=== PATIENT | female | born 1970 | race Caucasian/White ===

== ENCOUNTER → 2017-05-07 08:36 | Outpatient (CLI) | payer BC, SELFPAY ==
[2017-05-07 10:17] LABS: Basophils % 0.5 % (0.1-2.0); Eosinophils # 0.2 K/mm3 (0.0-0.4); Eosinophils % 3.1 % (0.1-12.0); Hematocrit 43.7 % (37.0-47.0); Hemoglobin 14.1 g/dL (12.2-16.2); Lymphocytes # 0.9 K/mm3 (0.7-4.5); Lymphocytes % 15.1 K/mm3 (10-50); Mean Corpuscular HGB Conc 32.2 g/dL (31.8-35.4); Mean Corpuscular Hemoglobin 25.5 pg (27.0-31.2); Mean Corpuscular Volume 79.3 fl (81-99); Mean Platelet Volume 6.9 fl (7.4-10.4); Monocytes # 0.5 K/mm3 (0.1-1.0); Monocytes % 8.2 % (1.7-9.3); Neutrophils # 4.2 K/mm3 (1.8-7.8); Neutrophils % 73.1 % (37.0-80.0); Platelet Count 220 K/mm3 (142-424); Red Blood Count 5.51 M/mm3 (4.20-5.40); Red Cell Distribution Width 16.5 % (11.5-17.5); White Blood Count 5.8 K/mm3 (4.8-10.8)
[2017-05-07 11:27] LABS: Alanine Aminotransferase 27 U/L (12-78); Albumin Level 3.6 gm/dL (3.4-5.0); Albumin/Globulin Ratio 1.2 (1.1-1.8); Alkaline Phosphatase 95 U/L (46-116); Anion Gap 11.4 mEq/L (5-15); Aspartate Amino Transferase 19 U/L (15-37); Bilirubin,Total 0.5 mg/dL (0.2-1.0); Blood Urea Nitrogen 10 mg/dL (7-18); Calcium 8.6 mg/dL (8.5-10.1); Carbon Dioxide 27 mmol/L (21.0-32.0); Chloride 106 mmol/L (98-107); Chol/HDL Ratio 2.1 (1-3.5); Cholesterol 143 mg/dL (140-200); Creatinine,Serum 0.58 mg/dL (0.55-1.02); Estimated Glomerular Filt Rate 111 ml/min (>60); Ferritin 11 ng/mL (8-388); GFR (African American) 135 ML/MIN (>60); Globulin 3.1 gm/dl (1.3-3.2); Glucose 99 mg/dL (74-106); HDL Cholesterol 68 mg/dL (29-89); LDL Cholesterol 65 mg/dL (0-130); Potassium 4.4 mmoL/L (3.5-5.1); Sodium 140 mmol/L (136-145); Thyroid Stimulating Hormone 0.98 uIU/ml (0.358-3.740); Total Protein,Serum 6.7 gm/dL (6.4-8.2); Triglycerides 50 mg/dL (30-200); VLDL Cholesterol 10 mg/dL (0-40)
[2017-05-08 09:10] LABS: Iron 39 ug/dL (27-159); UIBC 358 ug/dL (131-425)
[2017-05-08 17:27] LABS: Iron Saturation 10 % (15-55)
[2017-05-09 16:20] LABS: Folate >20.0 ng/mL (>3.0)
[2017-05-10 06:23] LABS: Vitamin B12 >2000 pg/mL (232-1245); Vitamin D 25 Hydroxy 40.8 ng/mL (30.0-100.0)
== END ==
PROVIDERS: PCP Physician Assistant; Visit Provider Physician Assistant
DX: D50.8 Other iron deficiency anemias (principal); R53.83 Other fatigue; Z13.220 Encounter for screening for lipoid disorders
CPT/HCPCS: 36415; 80053; 80061; 82607; 82652; 82728; 82746; 83550; 84443; 85025

== ENCOUNTER → 2017-05-24 08:42 | Outpatient (CLI) | payer BC, SELFPAY ==
[2017-05-24 09:28] LABS: Basophils % 0.4 % (0.1-2.0); Eosinophils # 0.2 K/mm3 (0.0-0.4); Eosinophils % 2.1 % (0.1-12.0); Hematocrit 38.9 % (37.0-47.0); Lymphocytes # 1.3 K/mm3 (0.7-4.5); Lymphocytes % 16.9 K/mm3 (10-50); Mean Corpuscular HGB Conc 33.5 g/dL (31.8-35.4); Mean Corpuscular Hemoglobin 26.3 pg (27.0-31.2); Mean Corpuscular Volume 78.4 fl (81-99); Mean Platelet Volume 7.2 fl (7.4-10.4); Monocytes # 0.4 K/mm3 (0.1-1.0); Monocytes % 5.6 % (1.7-9.3); Neutrophils # 5.6 K/mm3 (1.8-7.8); Neutrophils % 74.9 % (37.0-80.0); Platelet Count 191 K/mm3 (142-424); Red Blood Count 4.96 M/mm3 (4.20-5.40); Red Cell Distribution Width 16.1 % (11.5-17.5); White Blood Count 7.5 K/mm3 (4.8-10.8)
[2017-05-24 10:12] LABS: Anion Gap 11.4 mEq/L (5-15); Blood Urea Nitrogen 17 mg/dL (7-18); Carbon Dioxide 26 mmol/L (21.0-32.0); Chloride 107 mmol/L (98-107); Creatinine,Serum 0.67 mg/dL (0.55-1.02); Estimated Glomerular Filt Rate 94 ml/min (>60); GFR (African American) 114 ML/MIN (>60); Glucose 91 mg/dL (74-106); Potassium 4.4 mmoL/L (3.5-5.1); Sodium 140 mmol/L (136-145)
== END ==
PROVIDERS: PCP Physician Assistant; Visit Provider Nurse Practitioner Obstetrics & Gynecology
DX: N92.0 Excessive and frequent menstruation with regular cycle (principal)
CPT/HCPCS: 36415; 80048; 85025

== ENCOUNTER 2017-05-27 07:31 | Day surgery (SDC) | payer BC, SELFPAY ==
[2017-05-27] VITALS (11 sets, daily range): BP systolic 111–143; BP diastolic 36–84; PULSE 60–84; RESP 12–20; TEMP 36.4–37.4; O2SAT 96–100; BMI 83.9
[2017-05-27 08:09] LABS: Urine Pregnancy, HCG Qual. Negative (Negative)
--- NOTE | 2017-05-27 08:20 | HMH.ANESCL ---
[facility] Anesthesia Checklist - Patient Identification Patient Identification: Arm Band - Structural Data Admitted From: Home Planned Operative Procedure/s: hysteroscopy, d&c, novasure ablation Consent for Planned Operative Procedure(s) Verified: Yes Verified Documents: Surgical Consent, History and Physical - NPO Status Verified Time NPO: 00:00 - Additional verifications Anesthesia Reactions: No - Airway Assessment C-Spine Mobility Assessed: Yes TMJ Mobility Assessed: Yes Dentition: Good Dentition - Neurological Assessment Level of Consciousness: Awake, Alert - Anesthesia Plan Anesthesia Risk discussed: Yes Anesthesia Plan: Verified ASA Class: II Anesthesia Type: General [facility] Anesthesia HX I have reviewed the patient's past medical history: Yes Medical History: Denies:: Asthma, Cancer, Chronic Obstructive Pulmonary Disease (COPD), Diabetes Mellitus Type 1, Diabetes Mellitus Type 2, Hyperlipidemia, Hypertension, MRSA, Myocardial Infarction, Seizures Other Surgeries: Yes: Bariatric Surgery, Diagnostic Lap, Other (charo, breast cyst, wisdom teeth) Amputation: No Fractures: No *Family Hx:: Cancer, Coronary Artery Disease, Diabetes, Heart Attack, Hypertension
--- NOTE | 2017-05-27 09:13 | HMH.OPNOTE ---
Date of procedure: 05/27/17 Pre-op Diagnosis:: Menorrhagia Post-op diagnosis:: same Procedure performed:: Hysteroscopy, dilation and curettage, NovaSure ablation Surgeon:: Suresh Barillas MD MATERIALS RECYCLER:: Addy Escobedo Anesthesia: LMA Estimated blood loss (mL): 50 Clinical Note:: She is a 46-year-old lady who complains of extremely heavy periods. An endometrial biopsy was negative for hyperplasia or endometrial carcinoma. After having discussed the risks and benefits she elected to have an endometrial ablation. Operative findings:: She had a normal-appearing endometrial cavity. It sounded to 9 cm. The endometrial cavity itself was 6 cm long. It was 3.8 cm wide. There were some irregular endometrium within the endometrial cavity that looked like it had recently shed. Otherwise the endometrial cavity looked normal. Operative note:: She was taken to the operating room where LMA anesthesia was found to be adequate. She was prepped and draped in the normal sterile fashion in the lithotomy position. A weighted speculum was placed in the vagina and the anterior lip of the cervix was grasped with a tenaculum. Dias dilators used to dilate the cervix to approximately 5 mm. I then inserted a hysteroscope into the uterine cavity with saline as a distending media. The findings were as previously dictated. I then performed a gentle curettage with a medium curette. The endometrial cavity was measured and the findings were placed into the NovaSure device. The NovaSure device was then placed within the endometrial cavity and it was run through its program. I then injected 30 cc of 0.5% ropivacaine at the 3:00, 5:00, 7:00, and 9:00 positions of the cervix. Patient tolerated the procedure well and was taken to the recovery room in excellent condition. All sponge and instrument counts were correct. The estimated blood loss was less than 50 cc. Condition: stable Disposition: PACU Complications:: Endometrial curettings
--- NOTE | 2017-05-27 09:16 | P.OP_ITS ---
Date of procedure: 05/27/17 Pre-op Diagnosis:: Menorrhagia Post-op diagnosis:: same Procedure performed:: Hysteroscopy, dilation and curettage, NovaSure ablation Surgeon:: Suresh Barillas MD COMMISSARY SUPERINTENDENT:: Addy Escobedo Anesthesia: LMA Estimated blood loss (mL): 50 Clinical Note:: She is a 46-year-old lady who complains of extremely heavy periods. An endometrial biopsy was negative for hyperplasia or endometrial carcinoma. After having discussed the risks and benefits she elected to have an endometrial ablation. Operative findings:: She had a normal-appearing endometrial cavity. It sounded to 9 cm. The endometrial cavity itself was 6 cm long. It was 3.8 cm wide. There were some irregular endometrium within the endometrial cavity that looked like it had recently shed. Otherwise the endometrial cavity looked normal. Operative note:: She was taken to the operating room where LMA anesthesia was found to be adequate. She was prepped and draped in the normal sterile fashion in the lithotomy position. A weighted speculum was placed in the vagina and the anterior lip of the cervix was grasped with a tenaculum. Dias dilators used to dilate the cervix to approximately 5 mm. I then inserted a hysteroscope into the uterine cavity with saline as a distending media. The findings were as previously dictated. I then performed a gentle curettage with a medium curette. The endometrial cavity was measured and the findings were placed into the NovaSure device. The NovaSure device was then placed within the endometrial cavity and it was run through its program. I then injected 30 cc of 0.5% ropivacaine at the 3:00 , 5:00, 7:00, and 9:00 positions of the cervix. Patient tolerated the procedure well and was taken to the recovery room in excellent condition. All sponge and instrument counts were correct. The estimated blood loss was less than 50 cc. Condition: stable Disposition: PACU Complications:: Endometrial curettings
--- NOTE | 2017-05-27 09:19 | P.PN_ITS ---
[facility] Anesthesia Record Part I Intake, IV Amount: 500 Estimated blood loss (mL): 50 Urine output (mL): 50 Blood Products used (#): none Blood Pressure: 134/84 SaO2: 96 Pulse Rate: 84 Respiratory Rate: 18 Temperature: 99.4 F Patient is:: Drowsy, Stable
--- NOTE | 2017-05-27 09:19 | HMH.ANESII ---
[facility] Anesthesia Record Part II Discharge Time: 09:49 Destination: Surgical Day Care (OP Surgery) PACU nurse assessment reviewed?: Yes Patient Condition:: Fair Anesthesia Complications:: None
== END 2017-05-27 10:43 | disposition home or self-care (01) ==
PROVIDERS: Family Provider Physician Assistant; PCP Physician Assistant; Visit Provider Nurse Practitioner Obstetrics & Gynecology
PROC: 0U5B8ZZ Destruction of Endometrium, Via Natural or Artificial Opening Endoscopic (ICD-10-PCS; CPT 58563; principal; 2017-05-27 09:15)
DX: N92.0 Excessive and frequent menstruation with regular cycle (principal)
CPT/HCPCS: 58563; 81025; 96374; J0131; J2405